=== PATIENT | male | born 1950 | race African-American/Black ===

== ENCOUNTER 2019-03-25 11:53 | Observation (INO) ==
[2019-03-25] MEDS ORDERED: NITROGLYCERIN SL 0.4 MG TABLET SL PRN (12:25)
[2019-03-25] MEDS ORDERED: ASPIRIN 325 MG TABLET PO STA (12:25)
[2019-03-25 13:00] LABS: Basophils % 0.7 % (0.0-0.8); Eosinophils # 0.1 10*3/uL (0.0-0.87); Eosinophils % 2.4 % (0.00-10.9); Hematocrit 33.6 VOL% (42.0-52.0); Hemoglobin 10.8 GM/DL (14.0-18.0); Immature Granulocytes % 0.8 %; Immature Granulocytes Absolute 0.05 #; Lymphocytes # 2.1 10*3/uL (1.4-4.0); Lymphocytes % 35.1 % (21.2-54.2); Mean Corpuscular HGB Conc 32.1 GM/DL (32-36); Mean Corpuscular Volume 89.1 FL (87-102); Mean Platelet Volume 11.5 FL (9.6-12.0); Monocytes % 12.3 % (1.7-12.7); Neutrophils % 48.7 % (38.7-73.9); Platelet Count 164 T/CUMM (130-400); Red Blood Count 3.77 MC/CUMM (3.8-5.5); Red Cell Distribution Width 12.9 % (9.3-17.3); White Blood Count 5.9 T/CUMM (4-12)
[2019-03-25 13:15] LABS: Calcium 8.9 MG/DL (8.5-10.1); Osmolality,Calculated 282.5 MOS/KG (273-304); PT Patient Result 10.5 SECS (9.6-12.2); Partial Thromboplastin Time 22.2 SECS (20.8-36.0)
[2019-03-25 14:14] LABS: Apearance,Urine CLEAR (Clear); Bacteria,Urine Occasional /HPF (Few); Bilirubin,Urine Negative (Negative); Blood, Urine Small mg/dL (Negative); Glucose,Urine (UA) Negative (Negative); Ketones,Urine Negative (Negative); Mucus,Urine Occasional /LPF (Occasional); Nitrite,Urine Negative (Negative); Protein,Urine Negative; RBC,Urine 2 /HPF (0-4); Urine Color Yellow (Yellow); Urine Specific Gravity 1.018 (1.001-1.035); Urine Urobilinogen < 2.0 EU/DL (0.2-1.0); WBC,Urine 2 /HPF (0-6)
[2019-03-25 14:25] LABS: Barbiturates Screen,Urine Negative (Negative); Benzodiazepines Screen,Urine Negative (Negative); Cannabinoid Screen,Urine Negative (Negative); Opiate Screen,Urine Positive (Negative); Phencyclidine Screen,Urine Negative (Negative)
[2019-03-25] MEDS ORDERED: MORPHINE 4 MG/1 ML VIAL IV PRN (15:43)
[2019-03-25] MEDS ORDERED: ONDANSETRON 4 MG/2 ML VIAL IV PRN (15:43)
[2019-03-25] MEDS ORDERED: PROMETHAZINE 25 MG/1 ML VIAL IM PRN (15:43)
[2019-03-25] MEDS ORDERED: SODIUM CHLORIDE 0.9% 1,000 ML IV SCH (16:00)
[2019-03-25] MEDS ORDERED: ENOXAPARIN 40 MG/0.4 ML SYRINGE SUBCUT SCH (16:00)
[2019-03-25] MEDS ORDERED: GLUCAGON 1 MG VIAL IM PRN (16:34)
[2019-03-25] MEDS ORDERED: DEXTROSE 50% 25 GM/50 ML VIAL IV PRN (16:34)
[2019-03-25] MEDS ORDERED: FUROSEMIDE 40 MG/4 ML VIAL IV ONE (16:36)
[2019-03-25] MEDS ORDERED: DICLOFENAC 1% GEL 100 GM TUBE TOP PRN (16:45)
[2019-03-25] MEDS ORDERED: SODIUM CHLORIDE 0.45% 1,000 ML IV SCH (20:00)
[2019-03-25] MEDS ORDERED: ATORVASTATIN 10 MG TABLET PO SCH (21:00)
[2019-03-25] MEDS: traMADol 50 MG TABLET PO SCH (21:44)
[2019-03-25] MEDS: carvediloL 12.5 MG TABLET PO SCH (21:45)
[2019-03-25] MEDS: CARBAMIDE PEROXIDE 6.5% OTIC SOLN 15 ML BOTTLE RIGHT EAR SCH (21:48)
[2019-03-25] MEDS: INSULIN REGULAR 100 UNIT/ML SUBCUT SCH (22:12)
[2019-03-25] MEDS: INSULIN NPH/REGULAR 70/30 100 UNIT/ML SUBCUT SCH (22:13)
[2019-03-25] MEDS: ACETYLCYSTEINE 600 MG CAPSULE PO SCH (22:19)
[2019-03-26 06:03] LABS: Basophils % 0.7 % (0.0-0.8); Eosinophils # 0.1 10*3/uL (0.0-0.87); Eosinophils % 3.1 % (0.00-10.9); Hematocrit 33.2 VOL% (42.0-52.0); Hemoglobin 10.7 GM/DL (14.0-18.0); Immature Granulocytes % 0.9 %; Immature Granulocytes Absolute 0.04 #; Lymphocytes # 1.7 10*3/uL (1.4-4.0); Lymphocytes % 38.8 % (21.2-54.2); Mean Corpuscular HGB Conc 32.2 GM/DL (32-36); Mean Corpuscular Volume 89.7 FL (87-102); Mean Platelet Volume 11.9 FL (9.6-12.0); Monocytes % 12.6 % (1.7-12.7); Neutrophils % 43.9 % (38.7-73.9); Platelet Count 159 T/CUMM (130-400); White Blood Count 4.5 T/CUMM (4-12)
[2019-03-26 06:45] LABS: % Iron Saturation 26.6 % (18-50); Calcium 8.7 MG/DL (8.5-10.1); Ferritin 68.4 ng/ml (26-388); Osmolality,Calculated 284.8 MOS/KG (273-304); Risk Ratio 4.09; VLDL CHOLESTEROL 73.6 MG/DL
[2019-03-26 07:25] LABS: Sedimentation Rate-Westergren 22 MM/HR (0-20)
[2019-03-26 07:32] LABS: Folate 12.1 NG/ML (5.4-24.0); Vitamin B12 270 PG/ML (211-911)
[2019-03-26] MEDS ORDERED: NF- (Liraglutide [Victoza 2-Pak] 1.2 MG) SUBCUT SCH (09:00)
[2019-03-26] MEDS ORDERED: FLUTICASONE 50 MCG NASAL SPRAY 16 GM BOTTLE BOTH NARES SCH (09:00)
[2019-03-26] MEDS ORDERED: ASPIRIN EC 81 MG TABLET PO SCH (09:00)
[2019-03-26] MEDS ORDERED: PANTOPRAZOLE 40 MG TABLET PO SCH ×2 (09:00)
[2019-03-26 09:31] VITALS: BP 147/56
[2019-03-26] MEDS: ACETYLCYSTEINE 600 MG CAPSULE PO SCH (09:51)
[2019-03-26] MEDS: carvediloL 12.5 MG TABLET PO SCH (09:51)
[2019-03-26] MEDS: INSULIN REGULAR 100 UNIT/ML SUBCUT SCH (09:52)
[2019-03-26] MEDS: traMADol 50 MG TABLET PO SCH (11:18)
[2019-03-26] MEDS: INSULIN NPH/REGULAR 70/30 100 UNIT/ML SUBCUT SCH (11:19)
[2019-03-26] MEDS: CARBAMIDE PEROXIDE 6.5% OTIC SOLN 15 ML BOTTLE RIGHT EAR SCH (11:19)
[2019-03-28 07:06] LABS: Hemoglobin A1 (Alkaline) 97.4 % (96.5-98.5); Hemoglobin A2 (Alkaline) 2.6 % (1.5-3.5)
== END 2019-03-26 12:10 | disposition home or self-care (01) ==
LOC: N.EDINP 11:53 → N.ED 11:53 → N.2W 16:23
PROVIDERS: ADMIT Hospitalist; ATTEND Hospitalist

== ENCOUNTER 2020-08-01 17:39 | Observation (INO) ==
[2020-08-01] MEDS ORDERED: MORPHINE 4 MG/1 ML VIAL IV STA (21:10)
[2020-08-01] MEDS ORDERED: ALUM/MAG/SIMETH/LIDO VISC 1:1 30 ML BOTTLE PO STA (21:10)
[2020-08-01] MEDS ORDERED: ASPIRIN 325 MG TABLET PO STA (21:10)
[2020-08-01] MEDS ORDERED: ONDANSETRON 4 MG/2 ML VIAL IV STA (21:10)
[2020-08-01 21:47] LABS: Basophils # 0.1 10*3/uL (0.0-0.2); Basophils % 0.9 % (0.0-0.8); Eosinophils # 0.2 10*3/uL (0.0-0.87); Eosinophils % 2.4 % (0.00-10.9); Hematocrit 37.8 VOL% (42.0-52.0); Hemoglobin 11.8 GM/DL (14.0-18.0); Immature Granulocytes % 0.3 %; Immature Granulocytes Absolute 0.02 #; Lymphocytes # 3.2 10*3/uL (1.4-4.0); Lymphocytes % 46.3 % (21.2-54.2); Mean Corpuscular HGB Conc 31.2 GM/DL (32-36); Mean Corpuscular Volume 90.2 FL (87-102); Mean Platelet Volume 11.6 FL (9.6-12.0); Neutrophils % 40.1 % (38.7-73.9); Platelet Count 184 T/CUMM (130-400); Red Blood Count 4.19 MC/CUMM (3.8-5.5); Red Cell Distribution Width 12.6 % (9.3-17.3); White Blood Count 6.8 T/CUMM (4-12)
[2020-08-01 21:58] LABS: PT Patient Result 10.5 SECS (9.8-11.9)
[2020-08-01 22:34] LABS: Albumin 3.9 G/DL (3.4-5.0); Bilirubin,Total 1.1 MG/DL (0.2-1.0); Calcium 8.8 MG/DL (8.5-10.1); Osmolality,Calculated 274.2 MOS/KG (273-304); Total Protein 8.2 G/DL (5.0-7.5)
[2020-08-01 22:34] LABS: Bilirubin,Urine Negative (Negative); Blood, Urine Negative (Negative); Glucose,Urine (UA) Negative (Negative); Ketones,Urine Negative (Negative); Mucus,Urine Occasional /LPF (Occasional); Nitrite,Urine Negative (Negative); Protein,Urine Negative; RBC,Urine 1 /HPF (0-4); Urine Appearance CLEAR (Clear); Urine Color Straw (Yellow); Urine Specific Gravity 1.013 (1.001-1.035); Urine Urobilinogen < 2.0 EU/DL (0.2-1.0); WBC,Urine 1 /HPF (0-6)
[2020-08-01 22:37] LABS: Potassium 6.3 MMOL/L (3.5-5.1)
[2020-08-01] MEDS ORDERED: SODIUM CHLORIDE 0.9% 1,000 ML IV STA (22:57)
[2020-08-01] MEDS ORDERED: INSULIN REGULAR 10 UNIT, CALCIUM GLUCONATE 1,000 MG in DEXTROSE 10% 250 ML IV ONE (22:58)
[2020-08-02] MEDS ORDERED: ACETAMINOPHEN 325 MG TABLET PO PRN (02:19)
[2020-08-02] MEDS ORDERED: ONDANSETRON 4 MG/2 ML VIAL IV PRN (02:19)
[2020-08-02] MEDS ORDERED: GLUCAGON 1 MG VIAL IM PRN (02:19)
[2020-08-02] MEDS ORDERED: DEXTROSE 50% 25 GM/50 ML VIAL IV PRN (02:19)
[2020-08-02] MEDS ORDERED: DOCUSATE SODIUM 100 MG CAPSULE PO PRN (02:19)
[2020-08-02] MEDS ORDERED: hydrALAZINE 20 MG/1 ML VIAL IV PRN (02:19)
[2020-08-02] MEDS ORDERED: traMADol 50 MG TABLET PO PRN (02:25)
[2020-08-02] MEDS ORDERED: DICLOFENAC 1% GEL 100 GM TUBE TOP PRN (02:25)
[2020-08-02] MEDS ORDERED: SODIUM CHLORIDE 0.9% 1,000 ML IV SCH (02:30)
[2020-08-02 04:03] LABS: Basophils # 0.1 10*3/uL (0.0-0.2); Basophils % 0.9 % (0.0-0.8); Eosinophils # 0.1 10*3/uL (0.0-0.87); Eosinophils % 1.7 % (0.00-10.9); Hematocrit 35.8 VOL% (42.0-52.0); Hemoglobin 11.1 GM/DL (14.0-18.0); Immature Granulocytes % 0.4 %; Immature Granulocytes Absolute 0.03 #; Lymphocytes # 2.7 10*3/uL (1.4-4.0); Lymphocytes % 38.6 % (21.2-54.2); Mean Corpuscular Volume 90.9 FL (87-102); Mean Platelet Volume 11.3 FL (9.6-12.0); Monocytes % 10.1 % (1.7-12.7); Neutrophils % 48.3 % (38.7-73.9); Platelet Count 164 T/CUMM (130-400); Red Blood Count 3.94 MC/CUMM (3.8-5.5); Red Cell Distribution Width 12.5 % (9.3-17.3)
[2020-08-02 04:27] LABS: Calcium 8.6 MG/DL (8.5-10.1); Osmolality,Calculated 280.8 MOS/KG (273-304)
[2020-08-02] MEDS ORDERED: ENOXAPARIN 40 MG/0.4 ML SYRINGE SUBCUT SCH (08:00)
[2020-08-02] MEDS ORDERED: carvediloL 12.5 MG TABLET PO SCH (08:00)
[2020-08-02] MEDS: INSULIN LISPRO 100 UNIT/ML SUBCUT SCH ×4 (08:55→12:54)
[2020-08-02] MEDS ORDERED: INSULIN GLARGINE 100 UNIT/ML SUBCUT SCH (09:00)
[2020-08-02] MEDS ORDERED: PANTOPRAZOLE 40 MG TABLET PO SCH (09:00)
[2020-08-02] MEDS ORDERED: ASPIRIN EC 81 MG TABLET PO SCH (09:00)
[2020-08-02] MEDS ORDERED: Liraglutide [Victoza 2-Pak] SUBCUT SCH (09:00)
[2020-08-02 20:19] VITALS: BP 134/60
== END 2020-08-02 14:45 | disposition home or self-care (01) ==
LOC: N.EDINP 17:39 → N.ED 17:39 → N.4E 08-02 01:54
PROVIDERS: ADMIT Internal Medicine; ATTEND Internal Medicine

== ENCOUNTER 2021-03-29 16:40 | Inpatient (IN) ==
[2021-03-29 17:20] LABS: Basophils % 0.4 % (0.0-0.8); Eosinophils # 0.1 10*3/uL (0.0-0.87); Eosinophils % 0.7 % (0.00-10.9); Hematocrit 31.6 VOL% (42.0-52.0); Hemoglobin 9.8 GM/DL (14.0-18.0); Immature Granulocytes % 0.6 %; Immature Granulocytes Absolute 0.05 #; Lymphocytes # 1.1 10*3/uL (1.4-4.0); Lymphocytes % 11.6 % (21.2-54.2); Mean Corpuscular Volume 86.8 FL (87-102); Mean Platelet Volume 10.3 FL (9.6-12.0); Monocytes % 10.7 % (1.7-12.7); Platelet Count 173 T/CUMM (130-400); Red Blood Count 3.64 MC/CUMM (3.8-5.5); Red Cell Distribution Width 14.5 % (9.3-17.3); White Blood Count 9.1 T/CUMM (4-12)
[2021-03-29] MEDS ORDERED: NITROGLYCERIN SL 0.4 MG TABLET SL PRN (17:30)
[2021-03-29] MEDS ORDERED: ASPIRIN 325 MG TABLET PO STA (17:30)
[2021-03-29 17:42] LABS: Albumin 3.9 G/DL (3.4-5.0); Bilirubin,Total 0.9 MG/DL (0.20-1.00); Calcium 8.6 MG/DL (8.5-10.1); Osmolality,Calculated 282.8 MOS/KG (273-304); Potassium 4.9 MMOL/L (3.5-5.1); Total Protein 7.9 G/DL (6.4-8.2)
[2021-03-29] MEDS ORDERED: GLUCAGON 1 MG VIAL IM PRN (19:28)
[2021-03-29] MEDS ORDERED: DEXTROSE 50% 25 GM/50 ML VIAL IV PRN (19:28)
[2021-03-29] MEDS ORDERED: ACETAMINOPHEN 325 MG TABLET PO PRN (19:31)
[2021-03-29] MEDS ORDERED: DICLOFENAC 1% GEL 100 GM TUBE TOP PRN (19:35)
[2021-03-29] MEDS ORDERED: hydrALAZINE 20 MG/1 ML VIAL IV PRN (20:06)
[2021-03-29 20:58] LABS: INR 1.1; PT Patient Result 12.4 SECS (10.5-12.0); Partial Thromboplastin Time 31.3 SECS (23.8-32.1)
[2021-03-29] MEDS ORDERED: ATORVASTATIN 20 MG TABLET PO SCH (21:00)
[2021-03-29] MEDS: SODIUM CHLORIDE 0.9% 1,000 ML IV SCH (22:17)
[2021-03-29] MEDS: INSULIN REGULAR 100 UNIT/ML SUBCUT SCH (22:40)
[2021-03-29] MEDS: HEPARIN 5,000 UNIT/1 ML VIAL SUBCUT SCH (23:08)
[2021-03-29] MEDS: DOCUSATE SODIUM 100 MG CAPSULE PO SCH (23:08)
[2021-03-29] MEDS: LEVOFLOXACIN INJ 500 MG/100 ML PREMIX IV SCH (23:09)
[2021-03-29] MEDS: carvediloL 12.5 MG TABLET PO SCH (23:10)
[2021-03-30] MEDS: ONDANSETRON 4 MG/2 ML VIAL IV PRN (01:55)
[2021-03-30 05:28] LABS: Basophils % 0.5 % (0.0-0.8); Eosinophils # 0.1 10*3/uL (0.0-0.87); Eosinophils % 0.9 % (0.00-10.9); Hematocrit 28.6 VOL% (42.0-52.0); Hemoglobin 8.8 GM/DL (14.0-18.0); Immature Granulocytes % 0.4 %; Immature Granulocytes Absolute 0.03 #; Lymphocytes # 1.9 10*3/uL (1.4-4.0); Lymphocytes % 24.2 % (21.2-54.2); Mean Corpuscular HGB Conc 30.8 GM/DL (32-36); Mean Corpuscular Volume 87.2 FL (87-102); Mean Platelet Volume 10.6 FL (9.6-12.0); Monocytes % 16.5 % (1.7-12.7); Neutrophils % 57.5 % (38.7-73.9); Platelet Count 166 T/CUMM (130-400); Red Blood Count 3.28 MC/CUMM (3.8-5.5); Red Cell Distribution Width 14.6 % (9.3-17.3); White Blood Count 7.7 T/CUMM (4-12)
[2021-03-30 05:56] LABS: Albumin 3.4 G/DL (3.4-5.0); Bilirubin,Total 1.8 MG/DL (0.20-1.00); Calcium 8.3 MG/DL (8.5-10.1); Potassium 4.5 MMOL/L (3.5-5.1); Risk Ratio 1.23; Thyroid Stimulating Hormone 2.39 uIU/ml (0.358-3.74); Total Protein 7.2 G/DL (6.4-8.2)
[2021-03-30 06:43] LABS: Hypochromasia Slight; Lymphocytes 17 % (20-55); Platelet Estimate Adequate; Polychromasia Slight; Segmented Neutrophils 81 % (50-85); Total Cells Counted 100
[2021-03-30] MEDS: DOCUSATE SODIUM 100 MG CAPSULE PO SCH ×2 (08:52→21:39)
[2021-03-30] MEDS: PANTOPRAZOLE 40 MG TABLET PO SCH (08:53)
[2021-03-30] MEDS: carvediloL 12.5 MG TABLET PO SCH (08:53)
[2021-03-30] MEDS: HEPARIN 5,000 UNIT/1 ML VIAL SUBCUT SCH ×2 (08:53→21:40)
[2021-03-30] MEDS ORDERED: NITROGLYCERIN 0.2 MG/HR PATCH TRANSDERM SCH (09:00)
[2021-03-30] MEDS: INSULIN REGULAR 100 UNIT/ML SUBCUT SCH ×4 (09:23→21:40)
[2021-03-30] MEDS: SODIUM CHLORIDE 0.9% 1,000 ML IV SCH (09:42)
[2021-03-30] MEDS: CETIRIZINE 10 MG TABLET PO SCH (13:20)
[2021-03-30 13:24] LABS: Basophils % 0.4 % (0.0-0.8); Eosinophils # 0.1 10*3/uL (0.0-0.87); Eosinophils % 0.8 % (0.00-10.9); Hemoglobin 8.6 GM/DL (14.0-18.0); Immature Granulocytes % 0.8 %; Immature Granulocytes Absolute 0.06 #; Lymphocytes # 1.6 10*3/uL (1.4-4.0); Lymphocytes % 21.2 % (21.2-54.2); Mean Corpuscular HGB Conc 29.7 GM/DL (32-36); Mean Corpuscular Volume 89.2 FL (87-102); Monocytes % 14.8 % (1.7-12.7); Platelet Count 158 T/CUMM (130-400); Red Blood Count 3.25 MC/CUMM (3.8-5.5); Red Cell Distribution Width 14.6 % (9.3-17.3); White Blood Count 7.4 T/CUMM (4-12)
[2021-03-30 13:50] LABS: Ferritin 297.7 ng/mL (26-388)
[2021-03-30 13:59] LABS: Folate 15.19 NG/ML (5.38-24.0)
[2021-03-30 14:49] LABS: Hepatitis B Core IgM Quant 0.08 Index; Hepatitis B Surface Ag Quant < 0.10 Index; Hepatitis B Surface Ag Result Non-Reactive (NonReactive); Hepatitis C Virus Ab Quant 0.04 Index; Hepatitis C Virus Ab Result Non-Reactive (NonReactive)
[2021-03-30] MEDS ORDERED: KETOROLAC 15 MG/1 ML VIAL IV PRN (15:04)
[2021-03-30] MEDS: COLCHICINE 0.6 MG CAPSULE PO SCH ×2 (16:56→21:39)
[2021-03-30] MEDS: LEVOFLOXACIN INJ 500 MG/100 ML PREMIX IV SCH (21:39)
[2021-03-30] MEDS: METOPROLOL TARTRATE 50 MG TABLET PO SCH (21:49)
[2021-03-31] MEDS: ONDANSETRON 4 MG/2 ML VIAL IV PRN (01:58)
[2021-03-31 07:06] LABS: Basophils # 0.1 10*3/uL (0.0-0.2); Basophils % 0.6 % (0.0-0.8); Eosinophils # 0.1 10*3/uL (0.0-0.87); Eosinophils % 1.5 % (0.00-10.9); Hematocrit 28.5 VOL% (42.0-52.0); Hemoglobin 8.8 GM/DL (14.0-18.0); Immature Granulocytes % 0.7 %; Immature Granulocytes Absolute 0.06 #; Lymphocytes # 1.4 10*3/uL (1.4-4.0); Lymphocytes % 16.4 % (21.2-54.2); Mean Corpuscular HGB Conc 30.9 GM/DL (32-36); Mean Corpuscular Volume 87.4 FL (87-102); Mean Platelet Volume 11.4 FL (9.6-12.0); Monocytes % 14.5 % (1.7-12.7); Neutrophils % 66.3 % (38.7-73.9); Platelet Count 168 T/CUMM (130-400); Red Blood Count 3.26 MC/CUMM (3.8-5.5); Red Cell Distribution Width 14.6 % (9.3-17.3); White Blood Count 8.7 T/CUMM (4-12)
[2021-03-31 07:29] LABS: Calcium 8.1 MG/DL (8.5-10.1); Osmolality,Calculated 282.4 MOS/KG (273-304); Potassium 4.7 MMOL/L (3.5-5.1)
[2021-03-31] MEDS: COLCHICINE 0.6 MG CAPSULE PO SCH ×2 (08:52→20:46)
[2021-03-31] MEDS: ASPIRIN EC 81 MG TABLET PO SCH (08:52)
[2021-03-31] MEDS: DOCUSATE SODIUM 100 MG CAPSULE PO SCH ×2 (08:53→20:46)
[2021-03-31] MEDS: CETIRIZINE 10 MG TABLET PO SCH (08:53)
[2021-03-31] MEDS: PANTOPRAZOLE 40 MG TABLET PO SCH (08:53)
[2021-03-31] MEDS: METOPROLOL TARTRATE 50 MG TABLET PO SCH ×2 (08:53→20:47)
[2021-03-31] MEDS: HEPARIN 5,000 UNIT/1 ML VIAL SUBCUT SCH ×2 (08:54→20:47)
[2021-03-31] MEDS ORDERED: CHLORTHALIDONE 25 MG TABLET PO SCH (09:00)
[2021-03-31] MEDS: INSULIN REGULAR 100 UNIT/ML SUBCUT SCH ×4 (09:33→20:46)
[2021-03-31] MEDS: SIMETHICONE CHEW 125 MG TABLET PO PRN (12:42)
[2021-03-31] MEDS: INSULIN GLARGINE 100 UNIT/ML SUBCUT SCH (14:32)
[2021-03-31] MEDS: BENZONATATE 100 MG CAPSULE PO SCH (17:30)
[2021-03-31] MEDS: KETOROLAC 10 MG TABLET PO SCH (18:11)
[2021-03-31] MEDS: LEVOFLOXACIN INJ 500 MG/100 ML PREMIX IV SCH (20:47)
[2021-04-01] MEDS: KETOROLAC 10 MG TABLET PO SCH ×4 (00:27→17:14)
[2021-04-01] MEDS: ONDANSETRON 4 MG/2 ML VIAL IV PRN (03:10)
[2021-04-01 05:35] LABS: Basophils # 0.1 10*3/uL (0.0-0.2); Basophils % 0.6 % (0.0-0.8); Eosinophils # 0.2 10*3/uL (0.0-0.87); Eosinophils % 1.7 % (0.00-10.9); Hematocrit 28.9 VOL% (42.0-52.0); Hemoglobin 8.8 GM/DL (14.0-18.0); Immature Granulocytes % 0.9 %; Immature Granulocytes Absolute 0.08 #; Lymphocytes # 1.4 10*3/uL (1.4-4.0); Lymphocytes % 14.6 % (21.2-54.2); Mean Corpuscular HGB Conc 30.4 GM/DL (32-36); Mean Corpuscular Volume 86.8 FL (87-102); Mean Platelet Volume 11.2 FL (9.6-12.0); Monocytes % 13.5 % (1.7-12.7); Neutrophils % 68.7 % (38.7-73.9); Platelet Count 187 T/CUMM (130-400); Red Blood Count 3.33 MC/CUMM (3.8-5.5); Red Cell Distribution Width 14.6 % (9.3-17.3); White Blood Count 9.3 T/CUMM (4-12)
[2021-04-01 05:50] LABS: Calcium 8.2 MG/DL (8.5-10.1); Osmolality,Calculated 286.5 MOS/KG (273-304); Potassium 4.7 MMOL/L (3.5-5.1)
[2021-04-01 05:57] LABS: Albumin 3.4 G/DL (3.4-5.0); Bilirubin,Total 0.8 MG/DL (0.20-1.00); Calcium 7.9 MG/DL (8.5-10.1); Osmolality,Calculated 292.1 MOS/KG (273-304); Total Protein 7.1 G/DL (6.4-8.2)
[2021-04-01] MEDS ORDERED: FERRIC GLUCONATE COMPLEX 62.5 MG in SODIUM CHLORIDE 0.9% 100 ML IV SCH (09:00)
[2021-04-01] MEDS: INSULIN REGULAR 100 UNIT/ML SUBCUT SCH ×4 (09:11→20:38)
[2021-04-01] MEDS: HEPARIN 5,000 UNIT/1 ML VIAL SUBCUT SCH ×2 (09:11→20:38)
[2021-04-01] MEDS: INSULIN GLARGINE 100 UNIT/ML SUBCUT SCH (09:11)
[2021-04-01] MEDS: PANTOPRAZOLE 40 MG TABLET PO SCH (09:12)
[2021-04-01] MEDS: BENZONATATE 100 MG CAPSULE PO SCH ×2 (09:12→20:38)
[2021-04-01] MEDS: COLCHICINE 0.6 MG CAPSULE PO SCH ×2 (09:12→20:38)
[2021-04-01] MEDS: ASPIRIN EC 81 MG TABLET PO SCH (09:12)
[2021-04-01] MEDS: METOPROLOL TARTRATE 50 MG TABLET PO SCH ×2 (09:12→20:39)
[2021-04-01] MEDS: DOCUSATE SODIUM 100 MG CAPSULE PO SCH ×2 (09:12→20:38)
[2021-04-01] MEDS: CETIRIZINE 10 MG TABLET PO SCH (09:12)
[2021-04-01] MEDS: FERRIC GLUCONATE COMPLEX 125 MG in SODIUM CHLORIDE 0.9% 100 ML IV SCH (11:09)
[2021-04-01] MEDS: guaiFENesin/DM ER 600-30 MG TABLET PO PRN (13:36)
[2021-04-01] MEDS: SIMETHICONE CHEW 125 MG TABLET PO PRN (17:13)
[2021-04-01] MEDS: LEVOFLOXACIN INJ 500 MG/100 ML PREMIX IV SCH (20:39)
[2021-04-02] MEDS: KETOROLAC 10 MG TABLET PO SCH ×3 (01:04→12:32)
[2021-04-02] MEDS: guaiFENesin/DM ER 600-30 MG TABLET PO PRN (05:00)
[2021-04-02 06:18] LABS: Basophils # 0.1 10*3/uL (0.0-0.2); Basophils % 0.5 % (0.0-0.8); Eosinophils # 0.3 10*3/uL (0.0-0.87); Eosinophils % 2.9 % (0.00-10.9); Hematocrit 27.4 VOL% (42.0-52.0); Hemoglobin 8.6 GM/DL (14.0-18.0); Immature Granulocytes % 0.9 %; Immature Granulocytes Absolute 0.08 #; Lymphocytes # 1.7 10*3/uL (1.4-4.0); Lymphocytes % 18.1 % (21.2-54.2); Mean Corpuscular HGB Conc 31.4 GM/DL (32-36); Mean Corpuscular Volume 85.4 FL (87-102); Mean Platelet Volume 11.5 FL (9.6-12.0); Monocytes % 14.2 % (1.7-12.7); NRBC # 0.03 10*3/uL; Neutrophils % 63.4 % (38.7-73.9); Platelet Count 199 T/CUMM (130-400); Red Blood Count 3.21 MC/CUMM (3.8-5.5); Red Cell Distribution Width 14.6 % (9.3-17.3); White Blood Count 9.3 T/CUMM (4-12)
[2021-04-02 06:50] LABS: Calcium 8.3 MG/DL (8.5-10.1); Osmolality,Calculated 288.2 MOS/KG (273-304); Potassium 4.6 MMOL/L (3.5-5.1)
[2021-04-02 06:54] LABS: Albumin 3.2 G/DL (3.4-5.0); Bilirubin,Total 1.7 MG/DL (0.20-1.00); Calcium 8.3 MG/DL (8.5-10.1); Osmolality,Calculated 289.1 MOS/KG (273-304); Potassium 4.6 MMOL/L (3.5-5.1); Total Protein 7.3 G/DL (6.4-8.2)
[2021-04-02 06:55] LABS: Risk Ratio 2.07; VLDL Cholesterol 14.4 MG/DL
[2021-04-02] MEDS: BENZONATATE 100 MG CAPSULE PO SCH (09:17)
[2021-04-02] MEDS: PANTOPRAZOLE 40 MG TABLET PO SCH (09:17)
[2021-04-02] MEDS: CETIRIZINE 10 MG TABLET PO SCH (09:17)
[2021-04-02] MEDS: HEPARIN 5,000 UNIT/1 ML VIAL SUBCUT SCH (09:17)
[2021-04-02] MEDS: ASPIRIN EC 81 MG TABLET PO SCH (09:17)
[2021-04-02] MEDS: DOCUSATE SODIUM 100 MG CAPSULE PO SCH (09:17)
[2021-04-02] MEDS: COLCHICINE 0.6 MG CAPSULE PO SCH (09:17)
[2021-04-02] MEDS: METOPROLOL TARTRATE 50 MG TABLET PO SCH (09:17)
[2021-04-02] MEDS: INSULIN REGULAR 100 UNIT/ML SUBCUT SCH ×2 (09:18→12:32)
[2021-04-02] MEDS: INSULIN GLARGINE 100 UNIT/ML SUBCUT SCH (09:18)
[2021-04-02] MEDS: FERRIC GLUCONATE COMPLEX 125 MG in SODIUM CHLORIDE 0.9% 100 ML IV SCH (09:18)
[2021-04-02 12:37] VITALS: BP 97/66
== END 2021-04-02 13:31 | disposition home or self-care (01) | DRG 314 ==
LOC: N.ED 16:40 → SUATTDRO 19:28 → N.EDINP 19:28 → N.TELES 22:09
PROVIDERS: ADMIT Internal Medicine; ATTEND Internal Medicine

== ENCOUNTER 2021-04-08 02:27 | Inpatient (IN) ==
[2021-04-08] MEDS ORDERED: methylPREDNISolone SOD SUC 125 MG/2 ML VIAL IV STA (03:10)
[2021-04-08] MEDS ORDERED: ALBUTEROL/IPRATROPIUM 3 ML NEB RESP TX STA (03:10)
[2021-04-08] MEDS ORDERED: MORPHINE 2 MG/1 ML SYRINGE IV STA (03:10)
[2021-04-08] MEDS ORDERED: ASPIRIN 325 MG TABLET PO STA (03:10)
[2021-04-08] MEDS ORDERED: FUROSEMIDE 100 MG/10 ML VIAL IV STA (03:10)
[2021-04-08] MEDS ORDERED: ONDANSETRON 4 MG/2 ML VIAL IV STA (03:10)
[2021-04-08 04:17] LABS: Basophils # 0.1 10*3/uL (0.0-0.2); Basophils % 0.7 % (0.0-0.8); Eosinophils # 0.2 10*3/uL (0.0-0.87); Eosinophils % 2.4 % (0.00-10.9); Hematocrit 31.2 VOL% (42.0-52.0); Hemoglobin 9.3 GM/DL (14.0-18.0); Immature Granulocytes % 1.1 %; Immature Granulocytes Absolute 0.09 #; Lymphocytes # 1.7 10*3/uL (1.4-4.0); Lymphocytes % 20.4 % (21.2-54.2); Mean Corpuscular HGB Conc 29.8 GM/DL (32-36); Mean Platelet Volume 10.1 FL (9.6-12.0); Monocytes % 12.7 % (1.7-12.7); NRBC # 0.03 10*3/uL; Neutrophils % 62.7 % (38.7-73.9); Platelet Count 320 T/CUMM (130-400); Red Blood Count 3.63 MC/CUMM (3.8-5.5); Red Cell Distribution Width 15.6 % (9.3-17.3); White Blood Count 8.2 T/CUMM (4-12)
[2021-04-08 04:56] LABS: INR 1.2
[2021-04-08 05:33] LABS: Albumin 3.4 G/DL (3.4-5.0); Bilirubin,Total 1.4 MG/DL (0.20-1.00); Calcium 8.3 MG/DL (8.5-10.1); Osmolality,Calculated 280.8 MOS/KG (273-304); Potassium 4.5 MMOL/L (3.5-5.1); Total Protein 7.3 G/DL (6.4-8.2)
[2021-04-08 05:50] LABS: Bilirubin,Urine Negative (Negative); Blood, Urine Small mg/dL (Negative); Glucose,Urine (UA) Negative (Negative); Hyaline Casts,Urine 6 /LPF (0-3); Ketones,Urine Negative (Negative); Mucus,Urine Occasional /LPF (Occasional); Nitrite,Urine Negative (Negative); Protein,Urine Negative; RBC,Urine 3 /HPF (0-4); Squamous Epithelial Cell,Urine Occasional /HPF (0-10); Urine Appearance CLEAR (Clear); Urine Color Yellow (Yellow); Urine Urobilinogen < 2.0 EU/DL (0.2-1.0)
[2021-04-08] MEDS ORDERED: SIMETHICONE CHEW 125 MG TABLET PO PRN (06:02)
[2021-04-08] MEDS ORDERED: DEXTROSE 50% 25 GM/50 ML VIAL IV PRN ×2 (06:02→12:48)
[2021-04-08] MEDS ORDERED: ACETAMINOPHEN 325 MG TABLET PO PRN (06:02)
[2021-04-08] MEDS ORDERED: POTASSIUM CHLORIDE RIDER 10 MEQ/100 ML PREMIX IV PRN (06:02)
[2021-04-08] MEDS ORDERED: hydrALAZINE 20 MG/1 ML VIAL IV PRN (06:02)
[2021-04-08] MEDS ORDERED: GLUCAGON 1 MG VIAL IM PRN (06:02)
[2021-04-08] MEDS ORDERED: ONDANSETRON 4 MG/2 ML VIAL IV PRN (06:02)
[2021-04-08] MEDS ORDERED: INSULIN REGULAR 100 UNIT/ML SUBCUT SCH (07:30)
[2021-04-08] MEDS: FUROSEMIDE 40 MG/4 ML VIAL IV SCH ×2 (09:01→15:55)
[2021-04-08] MEDS: DOCUSATE SODIUM 100 MG CAPSULE PO SCH ×2 (09:02→20:43)
[2021-04-08] MEDS: PANTOPRAZOLE 40 MG TABLET PO SCH (09:02)
[2021-04-08] MEDS ORDERED: ENOXAPARIN 40 MG/0.4 ML SYRINGE SUBCUT SCH (15:00)
[2021-04-08] MEDS: FERROUS SULFATE 325 MG TABLET PO SCH (20:43)
[2021-04-08] MEDS: METOPROLOL TARTRATE 25 MG TABLET PO SCH (20:43)
[2021-04-09 06:40] LABS: Basophils % 0.3 % (0.0-0.8); Eosinophils % 0.3 % (0.00-10.9); Hemoglobin 9.2 GM/DL (14.0-18.0); Immature Granulocytes % 1.7 %; Immature Granulocytes Absolute 0.18 #; Lymphocytes # 1.6 10*3/uL (1.4-4.0); Mean Corpuscular HGB Conc 29.7 GM/DL (32-36); Mean Corpuscular Volume 85.9 FL (87-102); Mean Platelet Volume 10.4 FL (9.6-12.0); Monocytes % 11.7 % (1.7-12.7); NRBC # 0.02 10*3/uL; Platelet Count 317 T/CUMM (130-400); Red Blood Count 3.61 MC/CUMM (3.8-5.5); Red Cell Distribution Width 15.7 % (9.3-17.3); White Blood Count 10.8 T/CUMM (4-12)
[2021-04-09 06:56] LABS: Calcium 8.1 MG/DL (8.5-10.1); Osmolality,Calculated 297.2 MOS/KG (273-304)
[2021-04-09 07:00] LABS: % Iron Saturation 16.1 % (18-50); Ferritin 277.1 ng/mL (26-388)
[2021-04-09] MEDS: METOPROLOL TARTRATE 25 MG TABLET PO SCH ×2 (08:00→20:21)
[2021-04-09] MEDS: CETIRIZINE 10 MG TABLET PO SCH (08:00)
[2021-04-09] MEDS: DOCUSATE SODIUM 100 MG CAPSULE PO SCH ×2 (08:00→20:22)
[2021-04-09] MEDS: PANTOPRAZOLE 40 MG TABLET PO SCH (08:00)
[2021-04-09] MEDS: ROSUVASTATIN 10 MG TABLET PO SCH (08:00)
[2021-04-09] MEDS: COLCHICINE 0.6 MG CAPSULE PO SCH (08:00)
[2021-04-09] MEDS: FERROUS SULFATE 325 MG TABLET PO SCH ×2 (08:00→20:21)
[2021-04-09] MEDS: FUROSEMIDE 40 MG/4 ML VIAL IV SCH ×2 (08:01→15:41)
[2021-04-09] MEDS ORDERED: ALUM/MAG/SIMETH/LIDO VISC 1:1 30 ML BOTTLE PO PRN (09:34)
[2021-04-09] MEDS ORDERED: fentaNYL 100 MCG/2 ML VIAL ONE (09:56)
[2021-04-09] MEDS ORDERED: MIDAZOLAM 2 MG/2 ML VIAL ONE (09:56)
[2021-04-09] MEDS ORDERED: LIDOCAINE 1%/EPI INJ 20 ML VIAL ONE ×2 (09:58→11:15)
[2021-04-09] MEDS ORDERED: GLUCAGON 1 MG VIAL IM PRN (11:41)
[2021-04-09] MEDS ORDERED: DEXTROSE 50% 25 GM/50 ML VIAL IV PRN (11:41)
[2021-04-09] MEDS: CALCIUM CARBONATE CHEW 500 MG TABLET PO PRN (12:25)
[2021-04-09] MEDS: INSULIN REGULAR 100 UNIT/ML SUBCUT SCH ×2 (17:41→20:21)
[2021-04-10 06:26] LABS: Basophils # 0.1 10*3/uL (0.0-0.2); Basophils % 0.7 % (0.0-0.8); Eosinophils # 0.2 10*3/uL (0.0-0.87); Eosinophils % 2.8 % (0.00-10.9); Hematocrit 31.1 VOL% (42.0-52.0); Hemoglobin 9.3 GM/DL (14.0-18.0); Immature Granulocytes Absolute 0.08 #; Lymphocytes # 2.1 10*3/uL (1.4-4.0); Lymphocytes % 26.1 % (21.2-54.2); Mean Corpuscular HGB Conc 29.9 GM/DL (32-36); Mean Corpuscular Volume 86.1 FL (87-102); Mean Platelet Volume 10.5 FL (9.6-12.0); Monocytes % 14.5 % (1.7-12.7); NRBC # 0.02 10*3/uL; Neutrophils % 54.9 % (38.7-73.9); Platelet Count 317 T/CUMM (130-400); Red Blood Count 3.61 MC/CUMM (3.8-5.5); Red Cell Distribution Width 15.9 % (9.3-17.3); White Blood Count 8.2 T/CUMM (4-12)
[2021-04-10 06:40] LABS: Albumin 3.2 G/DL (3.4-5.0); Bilirubin,Total 1.1 MG/DL (0.20-1.00); Osmolality,Calculated 289.7 MOS/KG (273-304); Potassium 4.2 MMOL/L (3.5-5.1); Total Protein 7.1 G/DL (6.4-8.2)
[2021-04-10] MEDS: CETIRIZINE 10 MG TABLET PO SCH (08:36)
[2021-04-10] MEDS: METOPROLOL TARTRATE 25 MG TABLET PO SCH ×2 (08:36→21:05)
[2021-04-10] MEDS: DOCUSATE SODIUM 100 MG CAPSULE PO SCH ×2 (08:36→21:04)
[2021-04-10] MEDS: FERROUS SULFATE 325 MG TABLET PO SCH ×2 (08:36→21:04)
[2021-04-10] MEDS: COLCHICINE 0.6 MG CAPSULE PO SCH (08:36)
[2021-04-10] MEDS: PANTOPRAZOLE 40 MG TABLET PO SCH (08:37)
[2021-04-10] MEDS: ROSUVASTATIN 10 MG TABLET PO SCH (08:37)
[2021-04-10] MEDS: FUROSEMIDE 40 MG/4 ML VIAL IV SCH ×2 (08:38→17:02)
[2021-04-10] MEDS: INSULIN REGULAR 100 UNIT/ML SUBCUT SCH ×4 (11:03→21:22)
[2021-04-10 16:27] LABS: ABG Base Excess 2.6 MMOL/L (-2.5-2.5); ABG HCO3 25.7 MMOL/L (20-26); ABG Oxygen Saturation 32.1 % (95-100); ABG PCO2 53.5 MM HG (35-48); ABG PH 7.344 (7.35-7.45); ABG TCO2 27.3 MMOL/L (23-27); Allen Test Positive; Pt O2 Delivery Device CPAP
[2021-04-10 16:34] LABS: ABG PO2 22.8 MM HG (80-95)
[2021-04-10] MEDS: CHLORHEXIDINE 4% SOLN 118 ML BOTTLE TOP SCH ×2 (16:58→21:10)
[2021-04-10 17:08] LABS: Allen Test Positive; Pt O2 Delivery Device Room Air
[2021-04-10 17:09] LABS: ABG Base Excess 1.5 MMOL/L (-2.5-2.5); ABG HCO3 25.7 MMOL/L (20-26); ABG Oxygen Saturation 94.6 % (95-100); ABG PCO2 43.5 MM HG (35-48); ABG PH 7.395 (7.35-7.45); ABG PO2 75.1 MM HG (80-95); ABG TCO2 24.4 MMOL/L (23-27)
[2021-04-10] MEDS: CHLORHEXIDINE 0.12% ORAL RINSE 60 ML BOTTLE SWISH/SPIT SCH (21:04)
[2021-04-10] MEDS: CALCIUM CARBONATE CHEW 500 MG TABLET PO PRN (21:05)
[2021-04-11] MEDS ORDERED: CEFUROXIME INJ 1,500 MG in SODIUM CHLORIDE 0.9% 100 ML IV ONE (05:00)
[2021-04-11] MEDS ORDERED: DEXTROSE 50% 25 GM/50 ML SYRINGE IV PRN (05:30)
[2021-04-11] MEDS ORDERED: DEXTROSE 50% 25 GM/50 ML SYRINGE IV ONE (05:30)
[2021-04-11 07:00] LABS: Basophils # 0.1 10*3/uL (0.0-0.2); Basophils % 0.7 % (0.0-0.8); Eosinophils # 0.3 10*3/uL (0.0-0.87); Eosinophils % 3.4 % (0.00-10.9); Hematocrit 31.9 VOL% (42.0-52.0); Hemoglobin 9.6 GM/DL (14.0-18.0); Immature Granulocytes % 0.7 %; Immature Granulocytes Absolute 0.05 #; Lymphocytes # 1.9 10*3/uL (1.4-4.0); Lymphocytes % 24.8 % (21.2-54.2); Mean Corpuscular HGB Conc 30.1 GM/DL (32-36); Mean Corpuscular Volume 85.3 FL (87-102); Mean Platelet Volume 10.2 FL (9.6-12.0); Monocytes % 13.3 % (1.7-12.7); Neutrophils % 57.1 % (38.7-73.9); Platelet Count 293 T/CUMM (130-400); Red Blood Count 3.74 MC/CUMM (3.8-5.5); Red Cell Distribution Width 15.8 % (9.3-17.3); White Blood Count 7.7 T/CUMM (4-12)
[2021-04-11 07:23] LABS: Calcium 8.1 MG/DL (8.5-10.1); Osmolality,Calculated 283.8 MOS/KG (273-304); Potassium 3.9 MMOL/L (3.5-5.1)
[2021-04-11] MEDS: INSULIN REGULAR 100 UNIT/ML SUBCUT SCH ×4 (08:05→20:34)
[2021-04-11] MEDS: FUROSEMIDE 40 MG/4 ML VIAL IV SCH ×2 (08:06→16:39)
[2021-04-11] MEDS: DOCUSATE SODIUM 100 MG CAPSULE PO SCH ×2 (08:06→20:34)
[2021-04-11] MEDS: COLCHICINE 0.6 MG CAPSULE PO SCH (08:07)
[2021-04-11] MEDS: FERROUS SULFATE 325 MG TABLET PO SCH ×2 (08:07→20:33)
[2021-04-11] MEDS: ROSUVASTATIN 10 MG TABLET PO SCH (08:07)
[2021-04-11] MEDS: CHLORHEXIDINE 0.12% ORAL RINSE 60 ML BOTTLE SWISH/SPIT SCH ×2 (08:09→20:34)
[2021-04-11] MEDS: CETIRIZINE 10 MG TABLET PO SCH (08:09)
[2021-04-11] MEDS: PANTOPRAZOLE 40 MG TABLET PO SCH (08:09)
[2021-04-11] MEDS ORDERED: DIAZEPAM 5 MG TABLET PO ONE (09:00)
[2021-04-11] MEDS: METOPROLOL TARTRATE 25 MG TABLET PO SCH ×2 (09:27→20:33)
[2021-04-11] MEDS: CHLORHEXIDINE 4% SOLN 118 ML BOTTLE TOP SCH (09:28)
[2021-04-11] MEDS ORDERED: ONDANSETRON 4 MG/2 ML VIAL ONE (11:23)
[2021-04-11] MEDS ORDERED: DEXAMETHASONE 4 MG/1 ML VIAL ONE (11:23)
[2021-04-11] MEDS ORDERED: SODIUM CHLORIDE 0.9% 1,000 ML IV ONE (11:23)
[2021-04-11] MEDS ORDERED: fentaNYL 100 MCG/2 ML VIAL ONE (11:23)
[2021-04-11] MEDS ORDERED: LIDOCAINE 2% 5 ML VIAL ONE (11:23)
[2021-04-11] MEDS ORDERED: LACTATED RINGERS 1,000 ML IV ONE (11:23)
[2021-04-11] MEDS ORDERED: SEVOFLURANE 1 UNIT/15 MINUTE INH ONE ×3 (11:23→14:26)
[2021-04-11] MEDS ORDERED: SODIUM CHLORIDE 0.9% 250 ML IV ONE (11:23)
[2021-04-11] MEDS ORDERED: ETOMIDATE 40 MG/20 ML VIAL IV ONE (11:23)
[2021-04-11] MEDS ORDERED: ePHEDrine 50 MG/ML VIAL ONE (11:24)
[2021-04-11] MEDS ORDERED: MIDAZOLAM 2 MG/2 ML VIAL ONE (11:24)
[2021-04-11] MEDS ORDERED: PHENYLEPHRINE 10 MG/1 ML VIAL IV ONE (11:24)
[2021-04-11] MEDS ORDERED: SUCCINYLCHOLINE 200 MG/10 ML VIAL ONE (11:33)
[2021-04-11] MEDS ORDERED: KETAMINE 500 MG/10 ML VIAL ONE (11:34)
[2021-04-11] MEDS: ALBUTEROL/IPRATROPIUM 3 ML NEB RESP TX ONE ×2 (11:36→14:47)
[2021-04-11 11:40] LABS: ABG Base Excess 4.3 MMOL/L (-2.5-2.5); ABG HCO3 28.7 MMOL/L (20-26); ABG Oxygen Saturation 99.3 % (95-100); ABG PCO2 42.7 MM HG (35-48); ABG PH 7.446 (7.35-7.45); ABG PO2 287.3 MM HG (80-95); ABG TCO2 30.1 MMOL/L (23-27)
[2021-04-11 12:51] LABS: ABG Base Excess 3.3 MMOL/L (-2.5-2.5); ABG HCO3 27.4 MMOL/L (20-26); ABG Oxygen Saturation 99.9 % (95-100); ABG PCO2 36.3 MM HG (35-48); ABG PH 7.477 (7.35-7.45); ABG TCO2 24.5 MMOL/L (23-27); Glucose Heart Surgery 130 MG/DL (74-106); Hematocrit Heart Surgery 29.3 PERCENT (42-52); Hemoglobin Heart Surgery 9.5 G/DL (14.0-18.0); Ionized Calcium Arterial 1.07 MMOL/L (1.21-1.46); PCO2 Patient Temp Arterial 36.3 MMHG; PH Patient Temp Arterial 7.477; Patient Temperature 37 CELCIUS; Potassium Heart/CVR 4.4 MMOL/L (3.5-5.1); Sodium Heart/CVR 139 MMOL/L (135-145)
[2021-04-11] MEDS ORDERED: SUGAMMADEX 200 MG/2 ML VIAL IV ONE ×2 (13:10→13:12)
[2021-04-11] MEDS ORDERED: propofoL 200 MG/20 ML VIAL IV ONE (13:35)
[2021-04-11 13:56] LABS: Bilirubin,Urine Negative (Negative); Blood, Urine Small mg/dL (Negative); Glucose,Urine (UA) Negative (Negative); Hyaline Casts,Urine 1 /LPF (0-3); Ketones,Urine Negative (Negative); Mucus,Urine Occasional /LPF (Occasional); Nitrite,Urine Negative (Negative); Protein,Urine Negative; RBC,Urine <1 /HPF (0-4); Urine Appearance CLEAR (Clear); Urine Color Yellow (Yellow); Urine Specific Gravity 1.016 (1.001-1.035); Urine Urobilinogen < 2.0 EU/DL (0.2-1.0)
[2021-04-11 15:01] LABS: ABG Base Excess 2.2 MMOL/L (-2.5-2.5); ABG HCO3 26.3 MMOL/L (20-26); ABG Oxygen Saturation 97.2 % (95-100); ABG PH 7.355 (7.35-7.45); ABG TCO2 25.9 MMOL/L (23-27)
[2021-04-11] MEDS: MORPHINE 2 MG/1 ML SYRINGE IV PRN ×2 (15:10→21:04)
[2021-04-11] MEDS ORDERED: hydrALAZINE 25 MG TABLET PO ONE ×2 (16:27→18:00)
[2021-04-11] MEDS ORDERED: AMIODARONE INJ 150 MG in DEXTROSE 5% 100 ML IV ONE (18:20)
[2021-04-11] MEDS ORDERED: AMIODARONE 450 MG/9 ML VIAL IV ONE (18:26)
[2021-04-11] MEDS ORDERED: AMIODARONE 150 MG/3 ML VIAL ONE (18:26)
[2021-04-11] MEDS ORDERED: AMIODARONE INJ 450 MG in DEXTROSE 5% 241 ML IV SCH (18:30)
[2021-04-12] MEDS ORDERED: AMIODARONE INJ 450 MG in DEXTROSE 5% 241 ML IV SCH
[2021-04-12] MEDS: MORPHINE 2 MG/1 ML SYRINGE IV PRN ×5 (01:25→23:25)
[2021-04-12 04:24] LABS: Basophils % 0.2 % (0.0-0.8); Hematocrit 29.3 VOL% (42.0-52.0); Hemoglobin 8.9 GM/DL (14.0-18.0); Immature Granulocytes % 0.7 %; Immature Granulocytes Absolute 0.07 #; Mean Corpuscular HGB Conc 30.4 GM/DL (32-36); Mean Corpuscular Volume 85.9 FL (87-102); Mean Platelet Volume 10.7 FL (9.6-12.0); Monocytes % 9.5 % (1.7-12.7); Neutrophils % 78.6 % (38.7-73.9); Platelet Count 290 T/CUMM (130-400); Red Blood Count 3.41 MC/CUMM (3.8-5.5); Red Cell Distribution Width 15.7 % (9.3-17.3); White Blood Count 9.4 T/CUMM (4-12)
[2021-04-12 04:27] LABS: Calcium 7.7 MG/DL (8.5-10.1); Osmolality,Calculated 296.1 MOS/KG (273-304); Potassium 4.9 MMOL/L (3.5-5.1)
[2021-04-12] MEDS: INSULIN REGULAR 100 UNIT/ML SUBCUT SCH ×5 (08:18→21:54)
[2021-04-12] MEDS: FUROSEMIDE 40 MG/4 ML VIAL IV SCH ×2 (08:19→16:48)
[2021-04-12] MEDS: METOPROLOL TARTRATE 25 MG TABLET PO SCH ×2 (08:24→21:30)
[2021-04-12] MEDS: COLCHICINE 0.6 MG CAPSULE PO SCH (08:24)
[2021-04-12] MEDS: CHLORHEXIDINE 0.12% ORAL RINSE 60 ML BOTTLE SWISH/SPIT SCH ×2 (08:24→21:30)
[2021-04-12] MEDS: CETIRIZINE 10 MG TABLET PO SCH (08:24)
[2021-04-12] MEDS: ROSUVASTATIN 10 MG TABLET PO SCH (08:24)
[2021-04-12] MEDS: FERROUS SULFATE 325 MG TABLET PO SCH ×2 (08:24→21:30)
[2021-04-12] MEDS: DOCUSATE SODIUM 100 MG CAPSULE PO SCH ×2 (08:24→21:30)
[2021-04-12] MEDS: PANTOPRAZOLE 40 MG TABLET PO SCH (08:24)
[2021-04-12 09:21] LABS: Albumin 2.8 G/DL (3.4-5.0); Bilirubin,Total 0.8 MG/DL (0.20-1.00); Calcium 7.8 MG/DL (8.5-10.1); Osmolality,Calculated 296.1 MOS/KG (273-304); Potassium 4.9 MMOL/L (3.5-5.1); Total Protein 6.1 G/DL (6.4-8.2)
[2021-04-12] MEDS: AMIODARONE 200 MG TABLET PO SCH ×2 (11:14→21:30)
[2021-04-12] MEDS ORDERED: cefTRIAXone 1,000 MG in SODIUM CHLORIDE 0.9% 100 ML IV SCH (11:30)
[2021-04-12] MEDS ORDERED: DEXTROSE 50% 25 GM/50 ML VIAL IV PRN (11:35)
[2021-04-13] MEDS: INSULIN NPH/REGULAR 70/30 100 UNIT/ML SUBCUT SCH ×3 (00:48→23:33)
[2021-04-13] MEDS: MORPHINE 2 MG/1 ML SYRINGE IV PRN ×4 (04:21→23:49)
[2021-04-13 05:33] LABS: Basophils # 0.1 10*3/uL (0.0-0.2); Basophils % 0.7 % (0.0-0.8); Eosinophils # 0.4 10*3/uL (0.0-0.87); Eosinophils % 4.6 % (0.00-10.9); Hematocrit 30.8 VOL% (42.0-52.0); Hemoglobin 9.3 GM/DL (14.0-18.0); Immature Granulocytes % 0.5 %; Immature Granulocytes Absolute 0.04 #; Lymphocytes # 2.3 10*3/uL (1.4-4.0); Lymphocytes % 26.6 % (21.2-54.2); Mean Corpuscular HGB Conc 30.2 GM/DL (32-36); Monocytes % 12.9 % (1.7-12.7); Neutrophils % 54.7 % (38.7-73.9); Platelet Count 279 T/CUMM (130-400); Red Blood Count 3.58 MC/CUMM (3.8-5.5); Red Cell Distribution Width 15.5 % (9.3-17.3); White Blood Count 8.5 T/CUMM (4-12)
[2021-04-13 05:46] LABS: Calcium 7.9 MG/DL (8.5-10.1); Osmolality,Calculated 285.3 MOS/KG (273-304); Potassium 3.8 MMOL/L (3.5-5.1)
[2021-04-13] MEDS: INSULIN REGULAR 100 UNIT/ML SUBCUT SCH ×4 (07:54→20:44)
[2021-04-13] MEDS: PANTOPRAZOLE 40 MG TABLET PO SCH (08:50)
[2021-04-13] MEDS: FUROSEMIDE 40 MG/4 ML VIAL IV SCH ×2 (08:50→17:14)
[2021-04-13] MEDS: COLCHICINE 0.6 MG CAPSULE PO SCH (08:50)
[2021-04-13] MEDS: ROSUVASTATIN 10 MG TABLET PO SCH (08:50)
[2021-04-13] MEDS: AMIODARONE 200 MG TABLET PO SCH ×2 (08:51→20:44)
[2021-04-13] MEDS: CETIRIZINE 10 MG TABLET PO SCH (08:51)
[2021-04-13] MEDS: CHLORHEXIDINE 0.12% ORAL RINSE 60 ML BOTTLE SWISH/SPIT SCH ×2 (08:51→20:56)
[2021-04-13] MEDS: DOCUSATE SODIUM 100 MG CAPSULE PO SCH ×2 (08:51→20:44)
[2021-04-13] MEDS: METOPROLOL TARTRATE 25 MG TABLET PO SCH ×2 (08:51→20:44)
[2021-04-13] MEDS: FERROUS SULFATE 325 MG TABLET PO SCH ×2 (08:51→20:44)
[2021-04-13] MEDS: cefTRIAXone 2,000 MG in SODIUM CHLORIDE 0.9% 100 ML IV SCH (09:08)
[2021-04-14] MEDS: MORPHINE 2 MG/1 ML SYRINGE IV PRN ×3 (03:55→20:51)
[2021-04-14 04:25] LABS: Basophils # 0.1 10*3/uL (0.0-0.2); Basophils % 0.8 % (0.0-0.8); Eosinophils # 0.4 10*3/uL (0.0-0.87); Eosinophils % 5.7 % (0.00-10.9); Hemoglobin 9.7 GM/DL (14.0-18.0); Immature Granulocytes % 0.5 %; Immature Granulocytes Absolute 0.04 #; Lymphocytes % 25.7 % (21.2-54.2); Mean Corpuscular HGB Conc 29.4 GM/DL (32-36); Mean Corpuscular Volume 85.5 FL (87-102); Mean Platelet Volume 10.5 FL (9.6-12.0); Monocytes % 11.6 % (1.7-12.7); Neutrophils % 55.7 % (38.7-73.9); Platelet Count 311 T/CUMM (130-400); Red Blood Count 3.86 MC/CUMM (3.8-5.5); Red Cell Distribution Width 15.3 % (9.3-17.3); White Blood Count 7.8 T/CUMM (4-12)
[2021-04-14 04:37] LABS: Calcium 8.1 MG/DL (8.5-10.1); Osmolality,Calculated 289.3 MOS/KG (273-304); Potassium 3.7 MMOL/L (3.5-5.1)
[2021-04-14] MEDS: INSULIN REGULAR 100 UNIT/ML SUBCUT SCH ×4 (08:05→20:47)
[2021-04-14] MEDS: DOCUSATE SODIUM 100 MG CAPSULE PO SCH ×2 (09:30→20:47)
[2021-04-14] MEDS: METOPROLOL TARTRATE 25 MG TABLET PO SCH ×2 (09:31→20:47)
[2021-04-14] MEDS: PANTOPRAZOLE 40 MG TABLET PO SCH (09:32)
[2021-04-14] MEDS: CETIRIZINE 10 MG TABLET PO SCH (09:32)
[2021-04-14] MEDS: AMIODARONE 200 MG TABLET PO SCH ×2 (09:33→20:47)
[2021-04-14] MEDS: FERROUS SULFATE 325 MG TABLET PO SCH ×2 (09:33→20:47)
[2021-04-14] MEDS: COLCHICINE 0.6 MG CAPSULE PO SCH (09:33)
[2021-04-14] MEDS: ROSUVASTATIN 10 MG TABLET PO SCH (09:34)
[2021-04-14] MEDS: FUROSEMIDE 40 MG/4 ML VIAL IV SCH ×2 (09:35→16:15)
[2021-04-14] MEDS: INSULIN NPH/REGULAR 70/30 100 UNIT/ML SUBCUT SCH ×2 (09:38→21:32)
[2021-04-14] MEDS: cefTRIAXone 2,000 MG in SODIUM CHLORIDE 0.9% 100 ML IV SCH (09:42)
[2021-04-14] MEDS: CHLORHEXIDINE 0.12% ORAL RINSE 60 ML BOTTLE SWISH/SPIT SCH ×2 (09:43→21:32)
[2021-04-14] MEDS: CALCIUM CARBONATE CHEW 500 MG TABLET PO PRN (23:44)
[2021-04-15] MEDS: MORPHINE 2 MG/1 ML SYRINGE IV PRN ×4 (04:36→22:53)
[2021-04-15 05:36] LABS: Basophils # 0.1 10*3/uL (0.0-0.2); Basophils % 1.3 % (0.0-0.8); Eosinophils # 0.4 10*3/uL (0.0-0.87); Eosinophils % 5.6 % (0.00-10.9); Hemoglobin 10.2 GM/DL (14.0-18.0); Immature Granulocytes % 0.6 %; Immature Granulocytes Absolute 0.04 #; Lymphocytes % 27.7 % (21.2-54.2); Mean Corpuscular Volume 84.8 FL (87-102); Mean Platelet Volume 10.7 FL (9.6-12.0); Monocytes % 11.9 % (1.7-12.7); Neutrophils % 52.9 % (38.7-73.9); Platelet Count 308 T/CUMM (130-400); Red Blood Count 4.01 MC/CUMM (3.8-5.5); White Blood Count 7.2 T/CUMM (4-12)
[2021-04-15 06:06] LABS: Calcium 8.3 MG/DL (8.5-10.1); Osmolality,Calculated 287.4 MOS/KG (273-304); Potassium 3.6 MMOL/L (3.5-5.1)
[2021-04-15] MEDS ORDERED: MAGNESIUM SULF RIDER 2 GM/50 ML PREMIX IV ONE (07:39)
[2021-04-15] MEDS: INSULIN REGULAR 100 UNIT/ML SUBCUT SCH ×4 (07:47→21:33)
[2021-04-15] MEDS: FERROUS SULFATE 325 MG TABLET PO SCH ×2 (09:19→21:33)
[2021-04-15] MEDS: AMIODARONE 200 MG TABLET PO SCH ×2 (09:19→21:33)
[2021-04-15] MEDS: ROSUVASTATIN 10 MG TABLET PO SCH (09:19)
[2021-04-15] MEDS: METOPROLOL TARTRATE 25 MG TABLET PO SCH ×2 (09:19→21:33)
[2021-04-15] MEDS: COLCHICINE 0.6 MG CAPSULE PO SCH (09:19)
[2021-04-15] MEDS: PANTOPRAZOLE 40 MG TABLET PO SCH (09:19)
[2021-04-15] MEDS: FUROSEMIDE 40 MG/4 ML VIAL IV SCH (09:20)
[2021-04-15] MEDS: CETIRIZINE 10 MG TABLET PO SCH (09:20)
[2021-04-15] MEDS: DOCUSATE SODIUM 100 MG CAPSULE PO SCH ×2 (09:20→21:33)
[2021-04-15] MEDS: cefTRIAXone 2,000 MG in SODIUM CHLORIDE 0.9% 100 ML IV SCH (09:20)
[2021-04-15] MEDS: CHLORHEXIDINE 0.12% ORAL RINSE 60 ML BOTTLE SWISH/SPIT SCH ×2 (09:21→21:34)
[2021-04-15] MEDS: INSULIN NPH/REGULAR 70/30 100 UNIT/ML SUBCUT SCH ×2 (09:21→22:07)
[2021-04-15] MEDS ORDERED: POTASSIUM CHLORIDE 20 MEQ TABLET PO ONE (11:52)
[2021-04-15] MEDS ORDERED: ASPIRIN EC 81 MG TABLET PO SCH (11:55)
[2021-04-15] MEDS ORDERED: APIXABAN 5 MG TABLET PO SCH (12:02)
[2021-04-15] MEDS: APIXABAN 2.5 MG TABLET PO SCH ×3 (12:08→21:33)
[2021-04-15] MEDS: ASCORBIC ACID 500 MG TABLET PO SCH (21:33)
[2021-04-16 05:50] LABS: Basophils # 0.1 10*3/uL (0.0-0.2); Basophils % 1.1 % (0.0-0.8); Eosinophils # 0.4 10*3/uL (0.0-0.87); Eosinophils % 6.5 % (0.00-10.9); Hematocrit 34.5 VOL% (42.0-52.0); Hemoglobin 10.5 GM/DL (14.0-18.0); Immature Granulocytes % 0.3 %; Immature Granulocytes Absolute 0.02 #; Lymphocytes # 1.8 10*3/uL (1.4-4.0); Lymphocytes % 28.9 % (21.2-54.2); Mean Corpuscular HGB Conc 30.4 GM/DL (32-36); Mean Platelet Volume 10.9 FL (9.6-12.0); Monocytes % 13.3 % (1.7-12.7); Neutrophils % 49.9 % (38.7-73.9); Platelet Count 308 T/CUMM (130-400); Red Blood Count 4.06 MC/CUMM (3.8-5.5); White Blood Count 6.3 T/CUMM (4-12)
[2021-04-16 05:58] LABS: Calcium 8.3 MG/DL (8.5-10.1); Osmolality,Calculated 282.7 MOS/KG (273-304); Potassium 3.7 MMOL/L (3.5-5.1)
[2021-04-16] MEDS ORDERED: FUROSEMIDE 40 MG TABLET PO SCH (09:00)
[2021-04-16] MEDS: METOPROLOL TARTRATE 25 MG TABLET PO SCH (09:14)
[2021-04-16] MEDS: APIXABAN 2.5 MG TABLET PO SCH (09:14)
[2021-04-16] MEDS: DOCUSATE SODIUM 100 MG CAPSULE PO SCH (09:14)
[2021-04-16] MEDS: ROSUVASTATIN 10 MG TABLET PO SCH (09:14)
[2021-04-16] MEDS: ASCORBIC ACID 500 MG TABLET PO SCH (09:14)
[2021-04-16] MEDS: CETIRIZINE 10 MG TABLET PO SCH (09:14)
[2021-04-16] MEDS: COLCHICINE 0.6 MG CAPSULE PO SCH (09:14)
[2021-04-16] MEDS: PANTOPRAZOLE 40 MG TABLET PO SCH (09:14)
[2021-04-16] MEDS: AMIODARONE 200 MG TABLET PO SCH (09:14)
[2021-04-16] MEDS: CHLORHEXIDINE 0.12% ORAL RINSE 60 ML BOTTLE SWISH/SPIT SCH (09:15)
[2021-04-16] MEDS: INSULIN REGULAR 100 UNIT/ML SUBCUT SCH ×2 (09:15→12:01)
[2021-04-16] MEDS: cefTRIAXone 2,000 MG in SODIUM CHLORIDE 0.9% 100 ML IV SCH (09:15)
[2021-04-16] MEDS: FERROUS SULFATE 325 MG TABLET PO SCH (09:15)
[2021-04-16] MEDS: INSULIN NPH/REGULAR 70/30 100 UNIT/ML SUBCUT SCH (09:15)
[2021-04-16] MEDS: MORPHINE 2 MG/1 ML SYRINGE IV PRN (11:24)
[2021-04-16 12:14] VITALS: BP 122/65
== END 2021-04-16 14:00 | disposition home health service (06) | DRG 270 ==
LOC: N.ED 02:27 → N.EDINP 02:27 → SUATTDRO 06:02 → N.EDINP 15:40 → N.TELES 15:43 → N.ICU 04-11 14:21 → N.TELES 04-12 18:21
PROVIDERS: ADMIT Internal Medicine; ATTEND Internal Medicine Geriatric Medicine

== ENCOUNTER 2021-10-21 19:12 | Observation (INO) ==
[2021-10-21] MEDS ORDERED: ASPIRIN 325 MG TABLET PO STA ×2 (19:38→19:50)
[2021-10-21] MEDS ORDERED: NITROGLYCERIN 2% OINT 1 INCH/GM PACK TOP STA (19:38)
[2021-10-21] MEDS ORDERED: FUROSEMIDE 40 MG/4 ML VIAL IV STA (19:38)
[2021-10-21] MEDS ORDERED: ONDANSETRON 4 MG/2 ML VIAL IV STA (19:38)
[2021-10-21] MEDS ORDERED: MORPHINE 2 MG/1 ML SYRINGE IV STA (19:38)
[2021-10-21] MEDS ORDERED: ASPIRIN EC 81 MG TABLET PO STA (19:52)
[2021-10-21] MEDS ORDERED: ASPIRIN CHEW 81 MG TABLET PO ONE (19:53)
[2021-10-21 20:23] LABS: Albumin 3.8 G/DL (3.4-5.0); Bilirubin,Total 0.4 MG/DL (0.20-1.00); Calcium 8.4 MG/DL (8.5-10.1); Osmolality,Calculated 287.3 MOS/KG (273-304); Total Protein 7.4 G/DL (6.4-8.2)
[2021-10-21 20:26] LABS: Basophils # 0.1 10*3/uL (0.0-0.2); Basophils % 0.8 % (0.0-0.8); Eosinophils # 0.2 10*3/uL (0.0-0.87); Eosinophils % 2.6 % (0.00-10.9); Hematocrit 33.7 VOL% (42.0-52.0); Hemoglobin 10.7 GM/DL (14.0-18.0); Immature Granulocytes % 1.1 %; Immature Granulocytes Absolute 0.07 #; Lymphocytes # 2.4 10*3/uL (1.4-4.0); Mean Corpuscular HGB Conc 31.8 GM/DL (32-36); Mean Corpuscular Volume 89.6 FL (87-102); Mean Platelet Volume 12.3 FL (9.6-12.0); Monocytes # 0.7 10*3/uL (0.11-0.8); Monocytes % 11.7 % (1.7-12.7); Neutrophils % 44.8 % (38.7-73.9); Platelet Count 129 T/CUMM (130-400); Red Blood Count 3.76 MC/CUMM (3.8-5.5); Red Cell Distribution Width 13.8 % (9.3-17.3); White Blood Count 6.2 T/CUMM (4-12)
[2021-10-21 21:16] LABS: PT Patient Result 10.6 SECS (10.5-12.0); Partial Thromboplastin Time 25.3 SECS (23.8-32.1)
[2021-10-21] MEDS ORDERED: POTASSIUM CHLORIDE RIDER 10 MEQ/100 ML PREMIX IV PRN (22:49)
[2021-10-21] MEDS ORDERED: MAGNESIUM SULF RIDER 2 GM/50 ML PREMIX IV PRN (22:49)
[2021-10-21] MEDS ORDERED: MAGNESIUM SULF RIDER 4 GM/100 ML PREMIX IV PRN (22:49)
[2021-10-21] MEDS ORDERED: GLUCAGON 1 MG VIAL IM PRN (22:49)
[2021-10-21] MEDS ORDERED: ONDANSETRON 4 MG/2 ML VIAL IV PRN (22:49)
[2021-10-21] MEDS ORDERED: POTASSIUM CHLORIDE 20 MEQ TABLET PO PRN (22:49)
[2021-10-21] MEDS ORDERED: ACETAMINOPHEN 325 MG TABLET PO PRN (22:49)
[2021-10-21] MEDS ORDERED: DEXTROSE 10% 250 ML BAG IV PRN (23:03)
[2021-10-22 02:02] LABS: Basophils # 0.1 10*3/uL (0.0-0.2); Basophils % 0.8 % (0.0-0.8); Eosinophils # 0.2 10*3/uL (0.0-0.87); Eosinophils % 2.4 % (0.00-10.9); Hematocrit 32.6 VOL% (42.0-52.0); Hemoglobin 10.5 GM/DL (14.0-18.0); Immature Granulocytes Absolute 0.06 #; Lymphocytes # 2.7 10*3/uL (1.4-4.0); Lymphocytes % 42.9 % (21.2-54.2); Mean Corpuscular HGB Conc 32.2 GM/DL (32-36); Mean Corpuscular Volume 90.3 FL (87-102); Mean Platelet Volume 11.8 FL (9.6-12.0); Monocytes # 0.6 10*3/uL (0.11-0.8); Monocytes % 9.9 % (1.7-12.7); Platelet Count 126 T/CUMM (130-400); Red Blood Count 3.61 MC/CUMM (3.8-5.5); Red Cell Distribution Width 13.6 % (9.3-17.3); White Blood Count 6.2 T/CUMM (4-12)
[2021-10-22 02:28] LABS: Calcium 8.6 MG/DL (8.5-10.1); Osmolality,Calculated 293.1 MOS/KG (273-304); Potassium 4.1 MMOL/L (3.5-5.1); Risk Ratio 1.76; VLDL Cholesterol 27.6 MG/DL
[2021-10-22] MEDS: INSULIN REGULAR 100 UNIT/ML SUBCUT SCH ×2 (08:40→13:16)
[2021-10-22] MEDS ORDERED: DOCUSATE SODIUM 100 MG CAPSULE PO SCH (09:00)
[2021-10-22] MEDS ORDERED: CETIRIZINE 10 MG TABLET PO SCH (09:00)
[2021-10-22] MEDS ORDERED: FERROUS SULFATE 325 MG TABLET PO SCH (09:00)
[2021-10-22] MEDS ORDERED: METOPROLOL TARTRATE 100 MG TABLET PO SCH (09:00)
[2021-10-22] MEDS ORDERED: ROSUVASTATIN 10 MG TABLET PO SCH (09:00)
[2021-10-22] MEDS ORDERED: PANTOPRAZOLE 40 MG TABLET PO SCH (09:00)
[2021-10-22] MEDS ORDERED: cloNIDine 0.1 MG TABLET PO PRN (09:09)
[2021-10-22] MEDS ORDERED: traMADol 50 MG TABLET PO PRN (09:09)
[2021-10-22] MEDS ORDERED: COLCHICINE 0.6 MG CAPSULE PO PRN (09:09)
[2021-10-22] MEDS ORDERED: ASCORBIC ACID 500 MG TABLET PO SCH (09:15)
[2021-10-22] MEDS ORDERED: OLMESARTAN 20 MG TABLET PO SCH (09:15)
[2021-10-22] MEDS ORDERED: APIXABAN 2.5 MG TABLET PO SCH (09:30)
[2021-10-22] MEDS ORDERED: FUROSEMIDE 40 MG TABLET PO SCH (09:30)
[2021-10-22] MEDS ORDERED: PRAZOSIN 1 MG CAPSULE PO SCH (09:30)
[2021-10-22] MEDS ORDERED: AMIODARONE 200 MG TABLET PO SCH (09:30)
[2021-10-22] MEDS: DOCUSATE SODIUM 100 MG CAPSULE PO SCH ×2 (10:06→10:12)
[2021-10-22] MEDS ORDERED: INSULIN LISPRO 100 UNIT/ML SUBCUT SCH ×2 (11:30→16:30)
[2021-10-22 14:09] VITALS: BP 123/64
[2021-10-22] MEDS ORDERED: FLUTICASONE 50 MCG NASAL SPRAY 16 GM BOTTLE BOTH NARES SCH (21:00)
[2021-10-23] MEDS ORDERED: INSULIN LISPRO 100 UNIT/ML SUBCUT SCH (07:30)
== END 2021-10-22 14:54 | disposition home or self-care (01) ==
LOC: N.ED 19:12 → N.TELES 19:12
PROVIDERS: ADMIT Internal Medicine; ATTEND Internal Medicine